=== PATIENT | female | born 1945 | race Caucasian/White ===

== ENCOUNTER 2018-01-07 15:24 | Emergency (ER) | payer MEDICARE, OTHER, SELFPAY ==
--- NOTE | 2018-01-07 14:57 | PC.NURSE ---
Report from nurse practitioner Marquise pt seen one week ago when she had trigger point injections for groin pain, next day was feeling better, 3 days later back to clinic for inability to walk and increased pain. today pt reported with bilateral lower leg pitting edema, and severe pain. per provider marquise pt is c/o 10/10 pain to left leg, and is very unlike her. pt coming pov.
[2018-01-07 15:51] VITALS: BP 125/71; PULSE 85; RESP 13; TEMP 36.8; O2SAT 98
--- NOTE | 2018-01-07 16:07 | PC.NURSE ---
Assumed care. Calls made to consulting Quin VILLANUEVA to re eval after
--- NOTE | 2018-01-07 16:29 | DI.US.S_ITS ---
PROCEDURE: US PERIPH VENOUS LOW EXTREM BI INDICATIONS: bilateral lower edema and ongoing left hip pain. TECHNIQUE: Real-time imaging, as well as color and pulse Doppler interrogation, were performed of the deep veins of both legs from the inguinal ligament to the popliteal fossa. COMPARISON: None. FINDINGS: Right: The deep veins are normally compressible, and free of intraluminal thrombus. Color and pulse Doppler demonstrate normal phasic intravascular flow. There is normal augmentation response to distal compression maneuver. Left: The deep veins are normally compressible, and free of intraluminal thrombus. Color and pulse Doppler demonstrate normal phasic intravascular flow. There is normal augmentation response to distal compression maneuver. IMPRESSION: No DVT in lower extremities. Dictated by: Alyson Flores M.D. on 01/07/2018 at 17:38 Approved by: Alyson Flores M.D. on 01/07/2018 at 17:39
--- NOTE | 2018-01-07 16:30 | DI.RAD.S_ITS ---
PROCEDURE: XR CHEST 1V INDICATIONS: edema lower extremities TECHNIQUE: One view of the chest was acquired. COMPARISON: [facility], CHEST 2 VIEW, 10/22/2014, 11:43. FINDINGS: Surgical changes and devices: None. Lungs and pleura: No pleural effusions or pneumothorax. Lungs are clear. Mediastinum: Mediastinal contours appear normal. Heart size is normal. Moderate hiatal hernia. Aortic calcifications. Bones and chest wall: No suspicious bony lesions. Levoconvex curvature thoracic spine. Overlying soft tissues appear unremarkable. IMPRESSION: 1. No acute cardiopulmonary abnormality. 2. Moderate hiatal hernia. Dictated by: Cooper Arita M.D. on 01/07/2018 at 16:52 Approved by: Cooper Arita M.D. on 01/07/2018 at 16:53
--- NOTE | 2018-01-07 16:30 | DI.RAD.S_ITS ---
PROCEDURE: XR HIP W PEL IF DONE LT 2V INDICATIONS: pain to left hip TECHNIQUE: AP pelvis and lateral view of the left hip acquired. COMPARISON: None. FINDINGS: Bones: Patient is status post bilateral hip arthroplasty, with hardware components in expected positions. The hip joints appear congruent. The visualized bony structures appear intact. Soft tissues: Overlying postoperative changes are noted. No suspicious soft tissue densities. IMPRESSION: Status post bilateral total hip arthroplasties with no apparent loosening or malalignment. Dictated by: Cooper Arita M.D. on 01/07/2018 at 16:54 Approved by: Cooper Arita M.D. on 01/07/2018 at 16:55
[2018-01-07 18:06] LABS: Add Manual Diff / Slide Review NO; Basophils Percent Auto 1.7 % (0-2); Eosinophils Percent Auto 5.4 % (2-4); Hematocrit 32.2 % (36-46); Hemoglobin 10.4 g/dL (12.0-16.0); Mean Corpuscular HGB Conc 32.4 % (30-36); Mean Corpuscular Hemoglobin 24.6 PG (26-34); Monocytes Percent Auto 7.6 % (3-14); Neutrophils Absolute Auto 3400 /uL (3000-5900); Neutrophils Percent Auto 66.3 % (50-75); Platelet Count 385 X10^3/uL (150-400); Red Blood Cell Count 4.23 X10^6/uL (4.0-5.2); Red Cell Distribution Width 18.1 % (11.6-14.8); White Blood Cell Count 5.2 X10^3/uL (4.5-11.0)
[2018-01-07 18:22] LABS: B Type Natriuretic Peptide 40.9 (<100)
[2018-01-07 18:33] LABS: Troponin I < 0.012 ng/mL (0.01-0.034)
[2018-01-07 18:35] LABS: Alanine Aminotransferase 24 IU/L (9-52); Albumin 3.7 g/dL (3.5-5.0); Albumin Globulin Ratio 1.2 (1.0-2.8); Alkaline Phosphatase 135 U/L (38-126); Aspartate Aminotransferase 23 IU/L (14-36); BUN Creatinine Ratio 25.8 (6-22); Bilirubin Total 0.3 mg/dL (0.2-1.3); Calcium 9.5 mg/dL (8.4-10.2); Estimated Glomerular Filt Rate 44.2 mL/min (>60); Globulin 3.1 g/dL (1.7-4.1); Glucose 94 mg/dL (80-110); HEMOLYSIS < 15 (0-50); Potassium 4.2 mmol/L (3.4-5.1); Sodium 138 mmol/L (137-145); Total Protein 6.8 g/dL (6.3-8.2)
--- NOTE | 2018-01-07 19:08 | ED_ITS ---
HPI - Extremity Injury (Lower) <SASHA Phelps - Last Filed: 01/07/18 21:53> General Chief Complaint: Extremity Injury, Lower Stated Complaint: LEFT SIDE HIP AND LEG PAIN Time Seen by Provider: 01/07/18 15:36 History of Present Illness HPI Narrative: 72-year-old female here for complaint of pain into her left hip for the last year. She denies any trauma to the left hip. She does report that she has had left hip replacement approximately year and a half ago. She has been seen for this by her primary care provider a few times. She reports that she had lidocaine chest to that area last week she reports worsening pain this week. She denies any shortness of breath or chest pain. However she does report that she does have a bilateral lower extremity edema. She was ambulatory into the emergency room. She denies any other concerns or complaints at this time. Related Data Home Medications Medication Instructions Recorded Confirmed Fish Oil 1 cap PO DAILY 01/07/18 01/07/18 aspirin 81 mg PO DAILY 01/07/18 01/07/18 cholecalciferol (vitamin D3) 2,000 unit PO DAILY 01/07/18 01/07/18 citalopram 10 mg PO DAILY 01/07/18 01/07/18 coenzyme Q10 [Co Q-10] 100 mg PO DAILY 01/07/18 01/07/18 cyclobenzaprine 10 mg PO TID PRN 01/07/18 01/07/18 oxycodone-acetaminophen 1 - 2 tab PO Q6H 01/07/18 01/07/18 polyethylene glycol 3350 [Miralax] 17 g PO DAILY 01/07/18 01/07/18 Previous Rx's Medication Instructions Recorded amlodipine 10 mg PO QDAY #90 tab 04/19/17 losartan 100 mg PO QDAY #90 tab 04/19/17 Allergies Allergy/AdvReac Type Severity Reaction Status Date / Time latex Allergy Mild RASH Unverified 11/27/17 12:03 Penicillins Allergy Unknown CHILDHOOD Unverified 11/27/17 12:03 morphine AdvReac Intermediate SEVERE Unverified 11/27/17 12:03 VOMITING pravastatin AdvReac Intermediate DEPRESSION Unverified 11/27/17 12:03 simvastatin AdvReac Intermediate MYALGIAS Unverified 11/27/17 12:03 Review of Systems <SASHA Phelps - Last Filed: 01/07/18 21:53> Constitutional Denies chills, Denies fever(s), Denies lethargy and Denies weakness Eyes Denies change in vision, Denies eye discharge, Denies irritation and Denies loss of vision Cardiovascular Denies chest pain, Denies irregular heart rhythm, Denies lightheadedness, Denies palpitations and Denies orthopnea Musculoskeletal Comments: Ongoing left hip pain and bilateral lower extremity edema Neurologic Denies confusion, Denies loss of vision and Denies weakness Psychiatric Denies anxiety, Denies confusion, Denies depression, Denies homicidal ideation and Denies suicidal ideation Endocrine Denies palpitations Exam <ASSHA Phelps - Last Filed: 01/07/18 21:53> Initial Vital Signs Initial Vital Signs: Vital Signs Temperature 98.3 F 01/07/18 15:51 Pulse Rate 85 01/07/18 15:51 Respiratory Rate 13 01/07/18 15:51 Blood Pressure 125/71 H 01/07/18 15:51 Pulse Oximetry 98 01/07/18 15:51 Const General: cooperative and well developed Nutritional Appearance: well nourished Orientation: alert, awake, oriented x3 and not confused [facility] Mouth: oral mucosae normal, oropharynx normal and moist mucous membranes Eyes Conjunctivae: conjunctivae normal Sclera: sclerae normal Pupils: PERRL EOM: EOM intact bilaterally Resp Effort & Inspection: normal respiratory effort, able to speak in complete sentences, no respiratory distress and no use of accessory muscles Auscultation: clear to auscultation bilaterally, no rales, no rhonchi and no wheezes Cardio Rate: regular rate Rhythm: regular rhythm Heart Sounds: no click, no gallops, no murmurs and no rubs Pulses: normal peripheral pulses Skin General: no rashes or lesions noted, No jaundice and No petechiae Extrem Other: Left hip with no deformities. No swelling and no ecchymosis. No hernias. Distal sensation is intact. Distal pulses are intact. Distal range of motion is intact. Plus one edema to bilateral lower extremities. <Nilay Salomon DO - Last Filed: 01/14/18 18:11> Initial Vital Signs Initial Vital Signs: Vital Signs Temperature 98.3 F 01/07/18 15:51 Pulse Rate 85 01/07/18 15:51 Respiratory Rate 13 01/07/18 15:51 Blood Pressure 125/71 H 01/07/18 15:51 Pulse Oximetry 98 01/07/18 15:51 Course <SASHA Phelps - Last Filed: 01/07/18 21:53> Orders Ordered: ED Orders 01/07/18 16:29 US periph venous low extrem bi Stat 01/07/18 16:30 XR chest 1V Stat XR hip w pel if done LT 2V Stat EKG-12 Lead Stat 01/07/18 17:45 B Type Natriuretic Peptide Stat Complete Blood Count AUTO DIFF Stat Comprehensive Metabolic Panel Stat Troponin I Stat Vital Signs - 8 hr 01/07/18 15:51 Temperature 98.3 F Pulse Rate 85 Respiratory Rate 13 Blood Pressure 125/71 H Pulse Oximetry 98 <Nilay Salomon DO - Last Filed: 01/14/18 18:11> Orders Ordered: ED Orders 01/07/18 16:29 US periph venous low extrem bi Stat 01/07/18 16:30 XR chest 1V Stat XR hip w pel if done LT 2V Stat EKG-12 Lead Stat 01/07/18 17:45 B Type Natriuretic Peptide Stat Complete Blood Count AUTO DIFF Stat Comprehensive Metabolic Panel Stat Troponin I Stat Vital Signs - 8 hr 01/07/18 15:51 Temperature 98.3 F Pulse Rate 85 Respiratory Rate 13 Blood Pressure 125/71 H Pulse Oximetry 98 MDM - Extremity Injury (Lower) <SASHA Phelps - Last Filed: 01/07/18 21:53> Lab Data Result diagrams: 01/07/18 17:45 01/07/18 17:45 Lab Results 01/07/18 01/07/18 01/07/18 Range/Units 17:45 17:45 17:45 WBC 5.2 (4.5-11.0) X10^3/uL RBC 4.23 (4.0-5.2) X10^6/uL Hgb 10.4 L (12.0-16.0) g/dL Hct 32.2 L (36-46) % MCV 76.0 L (80-100) fL MCH 24.6 L (26-34) PG MCHC 32.4 (30-36) % RDW 18.1 H (11.6-14.8) % Plt Count 385 (150-400) X10^3/uL Neut % (Auto) 66.3 (50-75) % Lymph % (Auto) 19.0 L (25-40) % Hyde % (Auto) 7.6 (3-14) % Eos % (Auto) 5.4 H (2-4) % Baso % (Auto) 1.7 (0-2) % Neut # (Auto) 3400 (0755-6958) /uL Sodium 138 (137-145) mmol/L Potassium 4.2 (3.4-5.1) mmol/L Chloride 100.0 (98-107) mmol/L Carbon Dioxide 27.0 (22-32) mmol/L BUN 31.0 H (7-17) mg/dL Creatinine 1.20 H (0.52-1.04) mg/dL Estimated GFR 44.2 L (>60) mL/min BUN/Creatinine Ratio 25.8 H (6-22) Glucose 94 (80-110) mg/dL Calcium 9.5 (8.4-10.2) mg/dL Total Bilirubin 0.3 (0.2-1.3) mg/dL AST 23 (14-36) IU/L ALT 24 (9-52) IU/L Alkaline Phosphatase 135 H (38-126) U/L Troponin I < 0.012 (0.01-0.034) ng/mL B-Natriuretic Peptide 40.9 (<100) Total Protein 6.8 (6.3-8.2) g/dL Albumin 3.7 (3.5-5.0) g/dL Globulin 3.1 (1.7-4.1) g/dL Albumin/Globulin Ratio 1.2 (1.0-2.8) Imaging Data Chest x-ray: Radiologist's impression: PROCEDURE: XR CHEST 1V INDICATIONS: edema lower extremities TECHNIQUE: One view of the chest was acquired. COMPARISON: [facility], CHEST 2 VIEW, 10/22/2014, 11:43. FINDINGS: Surgical changes and devices: None. Lungs and pleura: No pleural effusions or pneumothorax. Lungs are clear. Mediastinum: Mediastinal contours appear normal. Heart size is normal. Moderate hiatal hernia. Aortic calcifications. Bones and chest wall: No suspicious bony lesions. Levoconvex curvature thoracic spine. Overlying soft tissues appear unremarkable. IMPRESSION: 1. No acute cardiopulmonary abnormality. 2. Moderate hiatal hernia. Dictated by: Cooper Arita M.D. on 01/07/2018 at 16:52 Approved by: Cooper Arita M.D. on 01/07/2018 at 16:53 left hip: Radiologist's impression: PROCEDURE: XR HIP W PEL IF DONE LT 2V INDICATIONS: pain to left hip TECHNIQUE: AP pelvis and lateral view of the left hip acquired. COMPARISON: None. FINDINGS: Bones: Patient is status post bilateral hip arthroplasty, with hardware components in expected positions. The hip joints appear congruent. The visualized bony structures appear intact. Soft tissues: Overlying postoperative changes are noted. No suspicious soft tissue densities. IMPRESSION: Status post bilateral total hip arthroplasties with no apparent loosening or malalignment. Bilateral lower extremity ultrasound: Radiologist's impression: PROCEDURE: US PERIPH VENOUS LOW EXTREM BI INDICATIONS: bilateral lower edema and ongoing left hip pain. TECHNIQUE: Real-time imaging, as well as color and pulse Doppler interrogation, were performed of the deep veins of both legs from the inguinal ligament to the popliteal fossa. COMPARISON: None. FINDINGS: Right: The deep veins are normally compressible, and free of intraluminal thrombus. Color and pulse Doppler demonstrate normal phasic intravascular flow. There is normal augmentation response to distal compression maneuver. Left: The deep veins are normally compressible, and free of intraluminal thrombus. Color and pulse Doppler demonstrate normal phasic intravascular flow. There is normal augmentation response to distal compression maneuver. IMPRESSION: No DVT in lower extremities. Dictated by: Alyson Flores M.D. on 01/07/2018 at 17:38 Approved by: Alyson Flores M.D. on 01/07/2018 at 17:39 ECG Data Interpretation: EKG shows sinus rhythm with no ST elevation or depression. No ectopy. Ventricular rate of 80. Pr interval 200. QRS duration of 100. QTC of 414. MDM Narrative Medical decision making narrative: Chest x-ray was obtained was negative for any acute findings. EKG was negative for any acute findings. CBC and Chem panel and cardiac enzymes were obtained and were unremarkable. BNP was negative. X-ray of the left hip was negative for any acute findings. Bilateral lower extremity ultrasound Doppler was negative for DVT. Chronic pain into left hip presents as muscle pain however due to chronic pain recommend following up with Orthopedics obtain an MRI for further evaluation. Use currently prescribed pain management regimen as needed for any discomfort. Follow up with primary care provider. Return emergency room for any worsening symptoms. <Nilay SalomonDO - Last Filed: 01/14/18 18:11> Lab Data Lab Results 01/07/18 01/07/18 01/07/18 Range/Units 17:45 17:45 17:45 WBC 5.2 (4.5-11.0) X10^3/uL RBC 4.23 (4.0-5.2) X10^6/uL Hgb 10.4 L (12.0-16.0) g/dL Hct 32.2 L (36-46) % MCV 76.0 L (80-100) fL MCH 24.6 L (26-34) PG MCHC 32.4 (30-36) % RDW 18.1 H (11.6-14.8) % Plt Count 385 (150-400) X10^3/uL Neut % (Auto) 66.3 (50-75) % Lymph % (Auto) 19.0 L (25-40) % Hyde % (Auto) 7.6 (3-14) % Eos % (Auto) 5.4 H (2-4) % Baso % (Auto) 1.7 (0-2) % Neut # (Auto) 3400 (3115-5577) /uL Sodium 138 (137-145) mmol/L Potassium 4.2 (3.4-5.1) mmol/L Chloride 100.0 (98-107) mmol/L Carbon Dioxide 27.0 (22-32) mmol/L BUN 31.0 H (7-17) mg/dL Creatinine 1.20 H (0.52-1.04) mg/dL Estimated GFR 44.2 L (>60) mL/min BUN/Creatinine Ratio 25.8 H (6-22) Glucose 94 (80-110) mg/dL Calcium 9.5 (8.4-10.2) mg/dL Total Bilirubin 0.3 (0.2-1.3) mg/dL AST 23 (14-36) IU/L ALT 24 (9-52) IU/L Alkaline Phosphatase 135 H (38-126) U/L Troponin I < 0.012 (0.01-0.034) ng/mL B-Natriuretic Peptide 40.9 (<100) Total Protein 6.8 (6.3-8.2) g/dL Albumin 3.7 (3.5-5.0) g/dL Globulin 3.1 (1.7-4.1) g/dL Albumin/Globulin Ratio 1.2 (1.0-2.8) Discharge Plan Departure Patient Disposition: Home, Self-Care Clinical Impression: Hip pain, left Discharge Date/Time: 01/07/18 19:17 Interventions: ED Discharge Assessment Last Done: 01/07/18 19:15 Instructions: DI for Hip Pain Activity Restrictions/Additional Instructions: Imaging and laboratory results today were unremarkable. Signs and symptoms presents as hip sprain/strain. Although since pain has been going on for a year recommend following up with Orthopedics in discussion of MRI for further evaluation. He is currently prescribed pain management regimen as needed for any discomfort. Follow up with primary care provider. Return emergency room for any worsening symptoms. Prescriptions: No Action amlodipine 10 MG tablet 10 mg PO QDAY Qty: 90 RF: 1 losartan 100 MG tablet 100 mg PO QDAY Qty: 90 RF: 1 cyclobenzaprine 10 mg tablet 10 mg PO TID PRN (Reason: Muscle Spasm) RF: 0 polyethylene glycol 3350 [Miralax] 17 gram Powder In Packet 17 g PO DAILY RF: 0 aspirin 81 mg Tablet,Delayed Release (Dr/Ec) 81 mg PO DAILY RF: 0 oxycodone-acetaminophen 5-325 mg tablet 1 - 2 tab PO Q6H RF: 0 coenzyme Q10 [Co Q-10] 100 mg Capsule 100 mg PO DAILY RF: 0 cholecalciferol (vitamin D3) 2,000 unit Capsule 2,000 unit PO DAILY RF: 0 Fish Oil 1 cap PO DAILY RF: 0 citalopram 10 MG tablet 10 mg PO DAILY RF: 0 Referrals: [facility] [Provider Group] Rishabh Fitzgerald MD [Primary Care Provider] - <Nilay Salomon DO - Last Filed: 01/14/18 18:11> Cosign ED Attending Cadence Attestation: I was available for consultation during this patient's emergency department encounter
== END 2018-01-07 19:17 | disposition home or self-care (01) ==
PROVIDERS: Emergency Provider Nurse Practitioner Family; Family Provider Family Medicine; PCP Family Medicine
DX: M25.552 Pain in left hip (principal); R60.0 Localized edema
CPT/HCPCS: 36415; 71045; 73502; 80053; 81003; 83880; 84484; 85025; 93005; 93970; 99281; 99283; 99285

== ENCOUNTER → 2018-07-07 08:51 | Outpatient (CLI) | payer MEDICARE, OTHER, SELFPAY ==
--- NOTE | 2018-07-07 | DI.NM.S_ITS ---
PROCEDURE: NM BONE 3 PHASE RADIOPHARMACEUTICAL: 19.5 mCi Tc-99m MDP IV. INDICATIONS: 73 year-old female with history of left hip prosthesis with increasing pain presenting for evaluation of possible loosening. TECHNIQUE: Multiple bone scintigrams were obtained after intravenous injection of Tc-99m MDP, including flow, blood pool, and delayed images centered to the region of interest. COMPARISON: [facility], MR, HIP WITHOUT CONTRAST, 07/09/2016, 9:01. [facility], CR, XR HIP W PEL IF DONE LT 2V, 01/07/2018, 16:12. FINDINGS: There is mild indistinct increased activity lateral to the proximal left femur on blood flow and blood pool images. Delayed images demonstrate no increased periarticular bony uptake. There are bilateral photopenic regions in the hips consistent with bilateral prostheses. IMPRESSION: 1. No abnormal periprosthetic bony uptake to suggest loosening. 2. Increased activity demonstrated in the soft tissues lateral to the proximal femur on blood flow and blood pool images. Findings are nonspecific but may reflect an inflammatory process. Further evaluation may be obtained with MRI if clinically indicated. Dictated by: Nathen Segundo M.D. on 07/07/2018 at 17:04 Approved by: Nathen Segundo M.D. on 07/07/2018 at 17:10
== END ==
PROVIDERS: Family Provider Family Medicine; PCP Family Medicine; Visit Provider Orthopaedic Surgery
DX: T84.84XA Pain due to internal orthopedic prosthetic devices, implants and grafts, initial encounter (principal); Z96.642 Presence of left artificial hip joint
CPT/HCPCS: 78315; A9503

== ENCOUNTER → 2022-07-09 15:35 | Outpatient (CLI) | payer MEDICARE, OTHER, SELFPAY ==
--- NOTE | 2022-07-09 15:38 | DI.CT.S_ITS ---
PROCEDURE: CT LE LT W CON INDICATIONS: LEFT KNEE PAIN TECHNIQUE: Noncontrast 1-1.5 mm axial sections acquired from the mid-patella to the proximal tibia, with coronal and sagittal reformats. COMPARISON: None. FINDINGS: Image quality: Excellent. Bones: Avulsion fracture of the tibial tuberosity with moderate displacement. There is also a suspected more chronic bone fragment at the patellar tendon origin. The quadriceps insertion is maintained. Scattered enthesopathic changes. Mild knee arthrosis overall. Soft tissues: Soft tissue edema adjacent to the fracture. Small amount of joint fluid. There are atherosclerotic calcifications. IMPRESSION: Tibial tuberosity avulsion fracture with surrounding soft tissue edema. Bone fragment adjacent to the patella at the patellar tendon origin might be more chronic. Dictated by: Andreas Donohue M.D. on 07/09/2022 at 16:49 Approved by: Andreas Donohue M.D. on 07/09/2022 at 16:52
== END ==
PROVIDERS: Family Provider Family Medicine; PCP Family Medicine; Referring Provider Orthopaedic Surgery; Visit Provider Orthopaedic Surgery
DX: S82.152A Displaced fracture of left tibial tuberosity, initial encounter for closed fracture (principal); M25.562 Pain in left knee; M79.89 Other specified soft tissue disorders; X58.XXXA Exposure to other specified factors, initial encounter
CPT/HCPCS: 73700

== ENCOUNTER 2022-07-11 21:32 | Inpatient (IN) | payer MEDICARE, OTHER, SELFPAY ==
[2022-07-11] VITALS (12 sets, daily range): BP systolic 114–171; BP diastolic 68–95; PULSE 59–93; RESP 12–23; TEMP 35.7–36.5; O2SAT 91–100; BMI 29.2
--- NOTE | 2022-07-11 | DI.RAD.S_ITS ---
PROCEDURE: XR KNEE LT 1TO2V INDICATIONS: left ORIF fracture TECHNIQUE: 7 views of the knee were acquired. COMPARISON: [facility]n, XR KNEE 4+ VIEWS LEFT, 07/09/2022, 11:05. FINDINGS: Multiple intraoperative fluoroscopic views of the knee demonstrate open reduction and internal fixation of the previously visualized left tibial tubercle fracture. There is placement of a fixation screw with improved alignment. IMPRESSION: 1. Intraoperative fluoroscopic views demonstrate ORIF of left tibial tubercle fracture. Dictated by: Nathen Segundo M.D. on 07/12/2022 at 3:22 Approved by: Nathen Segundo M.D. on 07/12/2022 at 3:23
[2022-07-11 16:02] LABS: COVID19 -Nasal RAPID Negative (Negative)
[2022-07-11] MEDS: LACTATED RINGERS 1,000 ML 42 ML IV (16:20)
[2022-07-11] MEDS: CEFAZOLIN 2 GM/100 ML PREMIX 100 ML IV (17:10)
[2022-07-11] MEDS: BUPIVACAINE 0.25% (PF) 30 ML, EPINEPHrine 0.15 MG INJ (17:41)
[2022-07-11] MEDS: fentaNYL 100 MCG/2 ML INJ IV ×2 (17:56→18:02)
[2022-07-11] MEDS: OXYCODONE IR 5 MG TABLET PO ×2 (18:10→18:54)
[2022-07-11] MEDS: HYDROMORPHONE 2 MG INJ IV ×4 (18:13→18:33)
--- NOTE | 2022-07-11 18:40 | PM.OP.1 ---
Operative Date/Time/Diagnoses Date of procedure: 07/11/22 Time of procedure: 18:40 Pre-op diagnosis: Left tibial tubercle fracture Post-op diagnosis: same Procedure & Clinicians Procedure: Open reduction internal fixation left tibial tubercle fracture Same procedure as scheduled: Yes Indications: This is a 77-year-old female who had a ground level fall sustaining a left tibial tubercle avulsion fracture. Due to the disruption to her extensor mechanism we discussed operative fixation in order to facilitate healing and allow her to extend her leg. Risks and benefits of the procedure were described and she wished to go forth. Surgeon: Milton Man Click Yes if Unassisted: Yes Anesthesia Type: General Operative Notes Findings: See operative note Closure Type: primary Estimated Blood Loss (mL): 10 Blood products transfused: none Tourniquet time (min): 32 Procedure in detail: Preoperative diagnosis: Left tibial tubercle fracture Postoperative diagnosis: Same The patient was seen in the preoperative holding area. Her left lower extremity was confirmed and marked with my initials. We again went over the risks and benefits of surgery including the risk of infection, damage to internal structures, bleeding, hardware failure, risk for future surgery and risk of anesthesia. She expressed understanding with these risks and wished to go forward with surgery. She was brought back to the operating room and transferred to the operating table supine. She underwent smooth induction of anesthesia and 2 g of Ancef were given. Her left lower extremity was prepped and draped in the standard sterile fashion. A bump was placed under the left hip. The staff talus was placed under the left knee. A final time-out was performed again my initials were confirmed on the left lower extremity. A 3 cm incision was made over the tibial tubercle and incision was brought down to the side of the fracture. Fracture edges were cleaned off and intervening periosteum was removed from the fracture site. This was irrigated with saline. Reduction was performed by extending the leg and manual manipulation. Reduction was held with 2 crossing K-wires. Reduction was confirmed on lateral x-ray. A single 3.5 mm screw was placed through the center of the tubercle with a figure of 8 washer laid across the fracture site. Before this was completely tightened down, a #2 FiberWire was sewn through the patellar tendon in a Krackow fashion and then linked through the distal end of the figure of 8 washer. The screw was then tightened all the way down and the FiberWire was then tied down. The wounds were then closed with 3-0 Vicryl and anabella. She was brought back to the postoperative care unit without any incident. Complications: none Post-operative Condition: stable Disposition: PACU Plan for aftercare: Postoperatively she will be nonweightbearing for 2 weeks and she will be in a knee immobilizer for 4 weeks. She may begin weight-bearing as long as her knee is extended after 2 weeks. Dressings may come off after 3 days and she can shower let warm soap and water run over the incisions. She is to pat the incisions completely dry and replace with clean dry dressings for 2 more days after which the dressings may come completely off. I will see her back in clinic in 2 weeks for wound check and removal of anabella.
[2022-07-11] MEDS: KETOROLAC 30 MG/ML VIAL 15 MG IV (18:43)
[2022-07-11] MEDS: ONDANSETRON 4 MG/2 ML INJ IV (19:04)
--- NOTE | 2022-07-11 19:31 | SUR.PHASEI ---
19[birth year] Report given to SOLITARIO Girard
--- NOTE | 2022-07-11 19:39 | SUR.PHASEI ---
Patient unable to keep her oxygen saturation above 95% on a consistent basis; patient denies SOB but has sleep apnea and uses a CPAP, which she has with her. Patient also c/o dizziness, but VSS. Denies any CP or nausea; pain is 3/10 for operative site. Asked patient is she felt that she could make it home on the [facility] with her and she states, no. Asked patient if she felt comfortable going to a hotel in [facility], and again, patient states, no. Advised Dr Man that patient would need to be admitted for observation due to inability to keep oxygen saturations at an acceptable level and inability to be discharged. Orders received for transfer to inpatient unit and notified home restoration service supervisor.
[2022-07-11] MEDS: DOCUSATE 100 MG CAPSULE PO (22:19)
[2022-07-11] MEDS: PROPRANOLOL 10 MG TABLET PO (22:19)
[2022-07-11] MEDS: FAMOTIDINE 20 MG TABLET PO (22:19)
[2022-07-11] MEDS: ASPIRIN EC 81 MG TABLET PO (22:19)
[2022-07-11] MEDS: GABAPENTIN 600 MG TABLET 300 MG PO (22:31)
[2022-07-12 06:35] VITALS: BP 149/79; PULSE 57; RESP 18; TEMP 36.1; O2SAT 96
[2022-07-12 07:56] VITALS: BP 159/80; PULSE 60; RESP 16; TEMP 36.4; O2SAT 96
[2022-07-12] MEDS: HYDROCODONE/ACET 5/325 TABLET 1 TAB PO (08:02)
[2022-07-12] MEDS: ASPIRIN EC 81 MG TABLET PO (08:03)
[2022-07-12] MEDS: NIFEdipine 30 MG TAB ER 60 MG PO (08:03)
[2022-07-12 08:04] VITALS: BP 159/80; PULSE 60
[2022-07-12] MEDS: FAMOTIDINE 20 MG TABLET PO (08:04)
[2022-07-12] MEDS: hydroCHLOROthiazide 25 MG TABLET 12.5 MG PO (08:04)
[2022-07-12] MEDS: DOCUSATE 100 MG CAPSULE PO (08:04)
[2022-07-12] MEDS: LOSARTAN 50 MG TABLET PO (08:04)
--- NOTE | 2022-07-12 08:06 | P.DS_ITS ---
History of Present Illness History of Present Illness Date Patient Seen: 07/12/22 Time Patient Seen: 08:06 Chief complaint: Left ORIF Ankle Fracture Narrative: Patient is a 77-year-old female that had a left tibial tubercle fracture and disruption of her extensor mechanism. She underwent ORIF of tibial tubercle by Dr. Milton Man on 07/11/2022. In the postoperative unit she had uncontrolled pain and sedation requiring inpatient admission to observation. As she was unable to be discharged in time to make her ferry back home and pain was not controlled enough to be discharged to local temporary hotel accommodations. Discharge Providers Provider Date of admission: 07/11/22 21:32 Discharge Date: 07/12/22 Primary care physician: Rishabh Fitzgerald MD Consults: 07/11/22 19:31 Consult to Discharge Planning Routine Comment: Consult to Physical Therapy Evaluate & Treat Comment: Physician Instructions: Evaluate and Treat Discharge provider: Vandana Brown MD Summary Hospital Course Discharge Diagnosis: Left tibial tubercle avulsion fracture Hospital Course: Patient was admitted to the inpatient observation unit postoperatively for uncontrolled pain and sedation in the postoperative area. She was not able to be timely discharge to make her very back home and was unsafe for local tell discharge. Therefore she was indicated admission for observation for pain control and nurse monitoring. Overnight she had pain control with oral and IV medications. She was controlled on oral medications and alert and oriented on the morning of discharge. She worked with Physical therapy and was demonstrated safe for discharge home on postoperative day 1 with pain controlled and stable vital signs. Status at Discharge Cognitive/behavioral status at discharge: oriented Functional status at discharge: wheelchair bound (Walker and wheelchair) Overall status at discharge: patient is not back to baseline Time Spent with Patient Time spent: Less than 30 minutes Exam Vital Signs (past 8 hours): - 07/12/22 06:35 07/12/22 07:56 07/12/22 08:04 Temperature 96.9 F L 97.5 F L Pulse Rate 57 L 60 60 Respiratory Rate 18 16 Blood Pressure 149/79 H 159/80 H 159/80 H Pulse Oximetry 96 96 Oxygen Delivery Method Room Air,CPAP Narrative Exam Narrative: Alert oriented female in no acute distress HEENT normocephalic atraumatic Respirations unlabored on room air Heart regular rate and rhythm Left lower extremity with dressing in place knee immobilizer in place. Wiggles toes. Demonstrates flexion and extension of the ankle. Calf and thigh are soft. Palpable pulses Objective Labs Labs: Laboratory Results - last 24 hr 07/11/22 15:40 SARS-CoV-2 (PCR) Negative PFSH Medical History Allergic rhinitis (~2010) Aortic heart murmur on examination (01/02/16) Chronic renal insufficiency, stage III (moderate) (01/02/16) Depressive disorder (~2010) Essential hypertension (~2010) Metatarsalgia (04/05/15) Mixed hyperlipidemia (~2010) Obstructive sleep apnea treated with continuous positive airway pressure (CPAP) (01/02/16) Postmenopausal estrogen deficiency (08/29/16) Sciatica (01/08/11) Surgical History History of hip replacement, total Social History household members: spouse Smoking Status: Never smoker alcohol intake: current Discharge Assessment & Plan Assessment and Plan Assessment: Postop day 1 left tibial tubercle ORIF 07/11/2022 Doing well. Pain better controlled and sedation mentation improved Vital signs stable. Appropriate for discharge home today after physical therapy. Plan of Treatment: 1. Nonweightbearing left lower extremity will use knee immobilizer at all times until follow-up. Use walker or wheelchair for mobilization 2. Follow-up in 2 weeks with orthopedic surgeon for staple removal. This will be Swapnil Sotelo [facility] -, Milton Man, clinic phone number [phone] 3. Aspirin 81 mg b.i.d. for DVT prophylaxis 4. Has pain medication prescriptions for ibuprofen and Roscoe that had already been sent to the pharmacy 5. Resume home medications Discharge Plan Discharge Plan Patient Disposition: Home Discharge orders & Medications Prescriptions: New hydrocodone-acetaminophen 5-325 mg tablet 1 tab PO Q6H PRN (Reason: pain) Qty: 20 0RF ibuprofen 600 mg tablet 600 mg PO Q6H PRN (Reason: pain) Qty: 60 0RF Continued irbesartan-hydrochlorothiazide 150-12.5 mg Tablet 1 tab PO DAILY nifedipine 30 mg tablet extended release 24hr 60 mg PO DAILY Label Comments: TAKE TWO(2) TABLETS BY MOUTH ONCE DAILY NOTE THESE ARE 30MG TABLETS cyclobenzaprine 10 mg tablet 10 mg PO DAILY PRN (Reason: Muscle Spasm) Label Comments: TAKE ONE(1) TABLET BY MOUTH ONCE DAILY NEEDED FOR MUSCLE SPASMS gabapentin 600 mg tablet 300 mg PO DAILY Label Comments: TAKE ONE(1) TABLET BY MOUTH ONCE DAILY AT BEDTIME propranolol 10 mg Tablet 10 mg PO BID famotidine 20 mg Tablet 20 mg PO BID citalopram 10 MG tablet 10 mg PO DAILY Follow up/Referrals: Rishabh Fitzgerald MD [Primary Care Provider] - Diet/Activity/Treatments Diet: Diet as Tolerated Activity: Remain in knee immobilizer for 4 weeks minimum. Okay to mobilize after 2 weeks as long as knee is completely extended and knee immobilizer is in place. use wheel chair or walker for mobilization, Postoperatively she will be nonweightbearing for 2 weeks and she will be in a knee immobilizer for 4 weeks. She may begin weight-bearing as long as her knee is extended after 2 weeks. Dressings may come off after 3 days and she can shower let warm soap and water run over the incisions. She is to pat the incisions completely dry and replace with clean dry dressings for 2 more days after which the dressings may come completely off. I will see her back in clinic in 2 weeks for wound check and removal of anabella. Other treatments: You must remain non-weight bearing on your operative ex tremity. Use crutches or a walker for ambulation. No driving until you are otherwise instructed by your physician. This will be addressed at your first follow-up appointment. Discharge Pain Medications You will be given a prescription for pain medication. You should start taking this the same day after your surgery. Wean off as tolerated. Do not wait to take the pain medication until the pain is severe, as it will be difficult to catch up once this occurs. The pain medication usually reaches its full effect ~1 hour after ingesting. If you have been sent home on Colace, this medication should be taken until you are off all narcotic (i.e. Vicodin, Percocet, Oxycodone, etc) pain medications, to prevent constipation. You may also obtain this or another stool softener over the counter to prevent or alleviate constipation. Percocet or Vicodin have Tylenol in their ingredient lists. You must be careful not to exceed 3,000mg (3 grams) of Tylenol, from all sources, within a single 24-hr period. This means that you may not take more than 10 pills within a 24- hr period. Do NOT take Regular or Extra Strength Tylenol when taking your Percocet or Vicodin medications. -IF you have been given a Toradol/ketorolac prescription, this is a very strong anti-inflammatory. Do not take lzeo-qsu-fnorytk anti-inflammatories (ibuprofen, Aleve, Advil, Motrin) while taking the Toradol/ketorolac. Once you are finished with this prescription, then you can resume wpse-gmk-qetkatp anti- inflammatories. You can still take your narcotic pain medication and Tylenol while taking the Toradol/ketorolac. -Some common side effects of the narcotic pain medications (Percocet, Oxycodone, Vicodin, etc.) include nausea and itching. Benadryl is a great over the counter medication that helps calm your stomach, decreases your anxiety levels, and minimizes the itching. You can easily purchase this at your local pharmacy as an bhqu-xfd-wtlbeiw medication. Please abide by the instructions as printed on the bottle. If your nausea persists, make sure to take small amounts of crackers or other aerobics teacher foods. -If have been given oxycodone 5 mg tablets, try to take the smallest dose needed to control your pain. Generally start with 5 mg every 4 hours as needed for pain. However you can increase this if you are having significant pain. The maximum dosage for oxycodone would be 15 mg or three (5 mg) tablets p.o. every 3 hours as needed for pain. As soon as pain is better controlled you should decrease the amount of medication your taking and increase the interval between doses. If you are given Percocet or Vicodin or Roscoe these are medications with the narcotic and Tylenol in them and they were dosing will need to keep in mind the maximum daily dosages for Tylenol/acetaminophen. Follow-Up/Emergency Contacts Please call for an appointment in either [place] or [place], if one has not been scheduled. Follow up 2 weeks after surgery. [phone] Contact the office if you have any of the following: ? Painful swelling or numbness ? Unrelenting pain ? Fever (over 101?- it is normal to have a low grade fever for the first day or two following surgery) or chills ? Redness around the incisions ? Color changes ? Continuous bleeding or drainage from the incision (a small amount is expected) ? Excessive nausea or vomiting ? Difficulty breathing If you have an emergency that requires immediate attention such as shortness of breath or chest pain, call 911 or proceed to the nearest emergency room. Blood Clot Prophylaxis You will need to complete a total 6-week (42 days) course of Aspirin enteric coated (81 mg twice daily) after surgery, to minimize the risk of blood clots following surgery. You may alternatively purchase or use fcxt-fxp-yphvfyt generic equivalent Aspirin. If you already have ?baby? Aspirin (81mg) at home, you can take 1 ?baby? Aspirin (twice daily) the dose. If you have gastric upset with this or a history of gastric bleeding or ulcers, do not take aspirin, please call the office for alternatives. Commence foot and ankle. knee pumps and movement with the nonoperative leg to keep your blood moving and help prevent clots. You can also obtain compression socks of antiembolism hose (PARISH) hose from the drug store to wear on the nonoperative leg and also on the operative leg once the splint or cast is removed. Adjust your position or get up onto your crutches every hour or so just to move around. Pain Medications: It is the policy of [facility] that narcotic medications will only be refilled during office hours. Additionally, due to the alarming rate of narcotic pain medication abuse/dependence, it has become necessary for physician practices to closely manage patient use of prescription narcotic pain relievers, such as Vicodin (Roscoe), Percocet, and Oxycodone products. Narcotic pain management in the postoperative period may not exceed 6 weeks. If narcotic pain management is required beyond 90 days, then a referral to a Chronic Pain Specialist will be made. If a request for a medication prescription has been made, the physician must review your chart prior to authorizing the request. Please be patient with office staff. If you call during patient hours, your call may not be returned until the end of the day. Dr. Milton Cho [place] [address] [place] [address] [email or web address] Skin/Wound/Dressing Care Report to your healthcare provider any signs of infection, such as:: chills, fever, night sweats, increased pain, unusual drainage and unusual redness Dressing: Dressings may come off after 3 days, okay to shower with warm soap and water. Completely dry the wound and then replace the dressings for 2 more days. Five days postoperatively take dressings completely off in remain dry to air. Visit Report/Discharge Packet Instructions: DI for Open Reduction Internal Fixation Surgery, DI for Prescription Opioid Use Discharge Data Primary Care Provider: Rishabh Fitzgerald VTE Deep Vein Thrombosis/Pulmonary Embolism Present on Admission: No
[2022-07-12] MEDS: INFLUENZA HD VACCINE 0.7 ML SYRINGE IM (08:22)
[2022-07-12] MEDS: PROPRANOLOL 10 MG TABLET PO (08:58)
--- NOTE | 2022-07-12 09:20 | CM.DANOTE ---
Initial DCP Assessment Note Pt is a 77 yo female, resident of [place], arrives after a GLF and subsequent Left tibial tubercle fracture, POD#1 from repair, surgery done by Dr Man. PCP: Clinic, [place] (Former PCP: Dr Medardo Fitzgerald) Payer: [facility]/Lizy grider Belkofski Reviewed chart, pt had been expected to discharge from the OR yesterday; was transferred to the acute care floor for monitoring d/t uncontrolled pain and sedation in recovery. Patient now cleared by therapy for discharge home w/spouse, PT recommends HH and patient/spouse agreeable Placed call to [facility] and discussed referral. Will plan to fax referral now Plan: Discharge home w/spouse to assist, via private auto and Marquise cedillo RN/PT/OT JOSH Merino Discharge Planning/Care Management CM Discharge Assessment Start: 07/12/22 09:18 Freq: Status: Active Protocol: Document 07/12/22 09:18 LAQUITA (Rec: 07/12/22 09:19 LAQUITA [id number]) Discharge Planning Assessment Assigned Bradder JOSH Wadsworth DPOA/Assigned Designee Name Wes Pulliam spouse Contact Information [phone] Advance Directives? No History Provided By Patient,Significant Other, Medical Record Prior Living Arrangements House Household Members spouse Type of transporation used prior to Drives own vehicle admit Independent with ADL's Yes Is patient alert and oriented? Yes Barriers to Discharge No Comment Return home to the care of spouse, close outpatient f/u Discharge Plan Home Transportation Arrangement Family
--- NOTE | 2022-07-12 09:30 | PT.IIE ---
Current Diagnoses Unspecified fracture of upper end of left tibia, initial encounter for closed fracture (07/11/22) Displaced fracture of unspecified tibial tuberosity, initial encounter for closed fracture (07/11/22) Surgery Performed Operation Date: 07/11/22 16:45 Actual Procedures p ORIF tibial tuberosity(Left) - Milton Man MD Surgical History (Last Reviewed 07/12/22 @ 08:10 by Vandana Brown MD) History of hip replacement, total Medical History (Last Reviewed 07/12/22 @ 08:10 by Vandana Brown MD) Allergic rhinitis (~2010) Aortic heart murmur on examination (01/02/16) Chronic renal insufficiency, stage III (moderate) (01/02/16) Depressive disorder (~2010) Essential hypertension (~2010) Metatarsalgia (04/05/15) Mixed hyperlipidemia (~2010) Obstructive sleep apnea treated with continuous positive airway pressure (CPAP) (01/02/16) Postmenopausal estrogen deficiency (08/29/16) Sciatica (01/08/11) Physical Therapy Inpatient Evaluation/Re-Eval M1 PT/OT-IP Prior Functional Status Start: 07/12/22 08:31 Freq: NEEDED Status: Active Protocol: Document 07/12/22 08:45 LRN (Rec: 07/12/22 10:48 LRN [id number]) Medical Review Prior Functional Status Medical History Reviewed Yes Diet/Fluid Consistency Regular Communication Normal Mobility and Gait Mobilized with W/C and use of FWW. Pt lessened use of FWW due to onset of mari shoulder pain with use of walker. Activities of Daily Living and IADL's Pt reports: Independent with assist of spouse for meals. Prior Functional Level (Other details) W/C bound, WBing limited on LLE by pain, but basically NWBing. Social History Household Members spouse Living Arrangements House Number of Floors (Floors) Two Floors Number of Stairs To Enter/Railing? 3 steps into home with mari railing, but only able to use one at a time. 0 steps to get into basement that has a bedroom and bathroom. Home Environment Standard Height Toilet Home Equipment Front Wheel Walker,Manual Wheelchair,Shower Seat with Backrest Employment Status Retired Additional Social History Comment Tub sides and wall next to toilet. 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 M2 PT-IP Current Condition Start: 07/12/22 08:31 Freq: NEEDED Status: Active Protocol: Document 07/12/22 08:45 LRN (Rec: 07/12/22 10:48 LRN [id number]) Physical Therapy Current Condition Current Condition Evaluation Date 07/12/22 Treatment Diagnosis Left tibial tubercle fracture, s/p ORIF 07/11/22. Onset Date 07/11/22 M3 PT-IP Subjective Start: 07/12/22 08:31 Freq: NEEDED Status: Active Protocol: Document 07/12/22 08:45 LRN (Rec: 07/12/22 10:48 LRN [id number]) Subjective Physical Therapy Visit Type Type Initial Evaluation Visit Start Time 09:45 Visit Stop Time 09:30 Total Visit Minutes 45 Physical Therapy Visit Comments Patient Comments Pt reports no L knee pain at rest. States 10 yrs ago had an anterior L TOM resulting in femoral n damage and quadriceps weakness. States she has fallen because of the knee weakness. 10 yrs ago suffered a diatal pole patellar fx 09/09/19 and on fell suffering patella fracture. Patient Goals Pt goal is to go home today. Therapy Pain Assessment Pain When Pain Assessed At Rest Pain Present Pain Present Denied Pain Location left knee Intensity 0 Scale Used Numeric (0 - 10) M4 PT-IP Mobility and Gait Start: 07/12/22 08:31 Freq: NEEDED Status: Active Protocol: Document 07/12/22 08:45 LRN (Rec: 07/12/22 10:48 LRN [id number]) PT-Bed Mobility Assessment Supine to Sit Supine to Sit Independent,Standby Assistance Scooting Scooting to Edge of Bed Independent PT-Transfer Assessment Sit to and From Stand Sit to and from Stand Independent,Standby Assistance ,Use of Upper Extremities Equipment Transfer Assistive Device Bed Rail,Gait Belt,Front Wheeled Walker Transfers Transfer Destination Toilet,Wheelchair Transfer Technique Stand Step Pivot Transfer Ability Level of Assist Independent,Standby Assistance Comments Mobility Comments Pt used FWW to mobilize to w/c and to toilet independently and safely. Gait Assessment Gait Gait Assistance Required: Standby Assistance,Contact Guard Assist Distance (Feet) 5 Able to Maintain Weight Bearing Status Yes During Gait Assistive Devices Assistive Device Gait Belt,Front Wheeled Walker Orthotic/Prosthetic Devices or Brace: Yes Gait Deviations General Gait Pattern Decreased Stride Length Factors Limiting Gait Function Factors Limiting Gait Function Decreased Strength,Pain,Poor Balance Comments Gait Comments Pt limited in walking with FWW due to L LE NWBing status, and bilateral shoulder discomfort. Pt slow to mobilize due to decreased balance due to NWBing status. She has 1/2 grade weakness of her UE's in general due to mari shoulder discomfort. Stair Climbing Assessment Technique/Endurance Stair Climbing Direction Ascend Number of Steps Climbed 1 Query Text: Comments Stair Climbing Comments Pt attempted to ambulate steps , but was not able to hop high enough to ambulate a normal hgt step (that she has at home ) with 1 railing and 1 person max assist. Pt did not have strength in her RLE to hop up and not enough strength in her UE's to lift and support her body to ambulate the step. PT-Balance Assessment Sitting Balance and Reactions Static Sitting Balance Ability Normal Dynamic Sitting Balance Ability Fair Standing Balance and Reactions Static Standing Balance Ability Fair Dynamic Standing Balance Ability Fair Device Used FWW Balance Tests Single Limb Standing R LE <1 sec M5 PT-IP Objective Assessments Start: 07/12/22 08:31 Freq: NEEDED Status: Active Protocol: Document 07/12/22 08:45 LRN (Rec: 07/12/22 10:48 LRN [id number]) Orientation Orientation/Cognition Level of Alertness Alert Orientation Name,Month,Date,Year,Place Language Function Ability No Deficits Noted Safety Awareness Understands Safety Issues Memory Description No Deficits Noted Gross Range of Motion Upper Extremity ROM Assessment Within Functional Limits Lower Extremity ROM Assessment Left Impaired Impairments L LE in knee immobilizer. RLE - WFL Strength Upper Extremity Strength Assessment Within Functional Limits Lower Extremity Strength Assessment Left Impaired Comments Strength Comments R LE: Hips: generally 3/5. Knee: Hamstring 4/5, Quad 5/5. Ankles: 5/5. UE's: Generally 4-/5. Other Assessments Other Other Assessments Pt was left in w/c at end of treatment to get ready for DC; therefore assessment for pt getting back into bed was not performed. Pt was able to transfer to and from w/c to toilet and had reported being NWBing for 2 weeks at home with use of w/c for prior 2 weeks with only assist needed for meal prep. M6 PT-IP Treatment Start: 07/12/22 08:31 Freq: NEEDED Status: Active Protocol: Document 07/12/22 08:45 LRN (Rec: 07/12/22 10:48 LRN [id number]) Physical Therapy Treatment Education Education Provided Precautions,Weight Bearing Status Equipment Issued Equipment Type and Company FWW Other Treatments Other Treatment Performed Recommended safest transfer w/ c to toilet with pt using FWW to walk to walk and turn to sit on toilet. Pt is aware of lack of ability to ambulate stairs at home and will walk into her basement bedroom to reside until she is able to ambulate stairs. M7 PT-IP Assessment and Plan Start: 07/12/22 08:31 Freq: NEEDED Status: Active Protocol: Document 07/12/22 08:45 LRN (Rec: 07/12/22 10:48 LRN [id number]) PT Summary Assessment and Plan Potential Rehabilitation Potential Excellent Status of Condition at Evaluation Evolving Summary Impairments ROM,Strength,Balance,Gait, Activity Tolerance Assessment Summary The pt is safet to go home entering on their basement level to avoid having to use stairs. Pt is independent with mobilizing out of bed and transfers bed<>w/c<>toilet. Pt will be seen 2x/day until discharge. Based on her ability to mobilize and walk with FWW, without signs of instability, as previously stated the pt would be safe to go home if she is able to walk into her home, avoiding stairs. I recommend the pt be seen for home health PT for improving the ability of the pt to ambulate stairs to make it safe to get in/out of her home using more than the one exit/entrance strategy. Goals Bed Mobility Goal Independent Transfer Goal Independent Gait Goal Standby Assistance Gait Distance 10' Days to Meet Goals 1 Frequency of Treatment Frequency Of Treatment Twice a Day Treatment Plan Physical Therapy Treatment Plan Gait Training,Therapeutic Exercise Precautions Brace Per physician orders, L knee immobilizer for 4 weeks minimum. NWBing for 2 weeks. Weight Bearing Status Weight Bearing Status Non-Weight Bearing Recommendations To Nursing Amount of Assist Needed Standby Assistance Discharge Recommendations PT Discharge Recommendations Home with Assistance,Home Health Transportation Needs at Discharge Private Vehicle
--- NOTE | 2022-07-12 10:52 | PC.NURSE ---
Pt is A&Ox4, VSS, afebrile on RA. She had used oxygen at night with her CPAP machine. She denies SOB. She reports pain well controlled this a.m. with prn hydrocodone. She is able to work with PT using w/ch and FWW. She is cleared for discharge by surgical MD for discharge home. She verbalizes understanding of weight bearing restrictions, site care, medications, and follow up appointments. She is escorted by w/ch with [employer] to private vehicle for discharge home [facility] [place] [phone]. She has all of her belongings and prescriptions were picked up prior by .
== END 2022-07-12 10:00 | disposition home health service (06) | DRG 494 ==
PROVIDERS: Admitting Provider Orthopaedic Surgery; Family Provider Family Medicine; PCP Family Medicine; Referring Provider Orthopaedic Surgery; Visit Provider Orthopaedic Surgery
PROC: 0QSH04Z Reposition Left Tibia with Internal Fixation Device, Open Approach (ICD-10-PCS; principal; 2022-07-11 16:45)
DX: S82.152A Displaced fracture of left tibial tuberosity, initial encounter for closed fracture (principal); I10 Essential (primary) hypertension; F32.A Depression, unspecified; W01.0XXA Fall on same level from slipping, tripping and stumbling without subsequent striking against object, initial encounter; Z20.822 Contact with and (suspected) exposure to COVID-19; Z23 Encounter for immunization
CPT/HCPCS: 73560; 73700; 76000; 87635; 90471; 90662; 97162; C9803; A9270; J1170; J1885; J2405; J2704; J3010

== ENCOUNTER → 2023-02-12 11:07 | Outpatient (CLI) | payer MEDICARE, OTHER, SELFPAY ==
[2022-07-11 22:38] VITALS: BMI 29.2
== END ==
PROVIDERS: Family Provider Family Medicine; PCP Family Medicine; Referring Provider Nurse Practitioner Family; Visit Provider Surgery
DX: I89.0 Lymphedema, not elsewhere classified (principal); L97.211 Non-pressure chronic ulcer of right calf limited to breakdown of skin; L97.221 Non-pressure chronic ulcer of left calf limited to breakdown of skin
CPT/HCPCS: 99203; 99214

== ENCOUNTER → 2023-03-08 14:05 | Outpatient (CLI) | payer MEDICARE, OTHER, SELFPAY ==
[2022-07-11 22:38] VITALS: BMI 29.2
== END ==
PROVIDERS: Family Provider Family Medicine; PCP Family Medicine; Referring Provider Family Medicine; Visit Provider Physician Assistant
DX: I89.0 Lymphedema, not elsewhere classified (principal); L97.822 Non-pressure chronic ulcer of other part of left lower leg with fat layer exposed
CPT/HCPCS: 97597; 99213

== ENCOUNTER → 2023-03-25 12:59 | Outpatient (CLI) | payer MEDICARE, OTHER, SELFPAY ==
[2022-07-11 22:38] VITALS: BMI 29.2
--- OUTSIDE RECORDS SUMMARY | 2023-07-19 15:09 | XMS_ITS | Referral Summary ---
Author Name Unknown Organization [facility] Address [address] [place] [address] Care Team Providers Care Hazardous Materials Waste Technician Name Role Phone Yin Camarillo Primary Care Provider [phone] Precious Bucio Unavailable [phone] Alpa Ayers MD Unavailable [phone] Reason for Referral * Specialty Visit (Routine) - In Process Specialty Diagnoses / Procedures Referred By Mary william Referred To Contact Diagnoses Cellulitis of left lower extremity Yin Camarillo ARNP [address] [place] [address] [facility] [address] [place] [id number] Referral ID Status Reason Start Date Expiration Date Visits Requested Visits Authorized [id number] In Process Specialty Services Required 01/15/2023 01/15/2024 99 99 Scheduling Instructions Referral to: [place]: [facility] (POS [id number]) [phone] Please be aware that while I, as your health care provider, have identified this referral as medically indicated, I cannot guarantee your insurance plan will cover it. I recommend you contact your insurance carrier to make sure this is a covered service they will pay for. Reason for Visit * Reason Comments Cellulitis Left lower leg & lym ph in groin swelling; small areas on right leg Encounter Details Date Type Department Care Team Description 01/15/2023 Office Visit Medicine [facility] [place] [address], [place] [id number] Yin Camarillo ARNP [address] [place] [address] Dx: Lymphadenopathy (Primary Dx) Allergies Active Allergy Reactions Severity Noted Date Comments Valentin Inhibitors Resp: Cough High 10/05/2021 Ibuprofen Other Medium 07/17/2019 Contraindicated due to poor kidney function Latex Skin: Rash Medium 06/15/2017 Lidocaine Medium 07/11/2018 Other reaction(s): Allergy Undetermined Lidocaine with IV starts caused atyptical burning (noted in 3 IV starts). Pt also reports a Lidocaine injection in groin in past had caused severe pain-4 days later Morphine GI:Nausea/vomiting High 06/15/2017 Penicillins Other Medium 06/15/2017 As child unsure of reaction Pravastatin Myalgia Medium 06/15/2017 Depression Simvastatin Myalgia Medium 06/15/2017 Myalgias Statins Myalgia Medium 08/14/2016 documented as of this encounter (statuses as of 01/16/2023) Medications Medication Sig Dispensed Refills Start Date End Date Status cholecalciferol 25 mcg (1,000 unit) capsule Take 3 capsules (3,000 units) by mouth. 0 07/03/2018 Active Scarbro-3 Fatty Acids (Fish Oil) 1000 MG capsule Take 1 capsule (1,000 mg) by mouth daily. 0 Active acetaminophen 325 MG tablet Take 2 tablets (650 mg) by mouth 2 times a day as needed. 0 Active famotidine 20 MG tablet TAKE ONE(1) TABLET BY MOUTH TWO(2) TIMES DAILY 0 09/08/2021 Active clindamycin 150 MG capsule TAKE FOUR(4) CAPSULES ONE(1) HOUR PRIOR TO DENTAL APPOINTMENT. 0 11/07/2021 Active cyclobenzaprine 10 MG tabletIndications:Bu ttock pain,Groin pain, left,Tendonitis in region of greater trochanter of femur, left TAKE ONE(1) TABLET BY MOUTH ONCE DAILY NEEDED FOR MUSCLE SPASMS 90 tablet 3 09/07/2022 Active gabapentin 600 MG tabletIndications:Bu ttock pain,Groin pain, left,Tendonitis in region of greater trochanter of femur, left TAKE ONE(1) TABLET BY MOUTH ONCE DAILY AT BEDTIME 90 tablet 0 10/17/2022 Active Additional Information Patient taking differently: 300 mg Oral Nightly, Reason: Other, Informant: Patient Reported, Reported on 11/26/2022 citalopram 10 MG tabletIndications:De pressive disorder TAKE ONE(1) TABLET BY MOUTH ONCE DAILY 90 tablet 1 10/20/2022 Active NIFEdipine ER 30 MG 24 hr tabletIndications:Es sential hypertension TAKE TWO(2) TABLETS BY MOUTH ONCE DAILY NOTE: THESE ARE 30MG TABLETS 180 tablet 0 11/11/2022 Active fenofibrate 54 MG tabletIndications:Mi xed hyperlipidemia Take 1 tablet (54 mg) by mouth daily. 90 tablet 3 11/16/2022 Active propranolol 10 MG tabletIndications:Es sential hypertension TAKE ONE(1) TABLET BY MOUTH TWO(2) TIMES DAILY 180 tablet 0 12/09/2022 Active irbesartan-hydroCHLO ROthiazide 150-12.5 MG tabletIndications:Es sential hypertension TAKE ONE(1) TABLET BY MOUTH ONCE DAILY 90 tablet 0 12/09/2022 Active tocopherol (Vitamin E) 450 mg (1,000 unit) capsule Take 1 capsule (450 mg) by mouth daily. 0 Active pyridoxine 100 MG tablet Take 1 tablet (100 mg) by mouth daily. 0 Active hydrOXYzine pamoate 25 MG capsuleIndications:P rurigo Take 1 capsule (25 mg) by mouth 3 times a day as needed for itching. 90 capsule 3 12/14/2022 Active Garlic 100 MG tablet Take by mouth daily. 0 Active Coenzyme Q10 (COQ10 OR) Take by mouth daily. 0 Active Red Yeast Rice Extract (RED YEAST RICE OR) Take by mouth daily. 0 Active nystatin 799769 UNIT/GM powderIndications:Fu ngal infection Apply topically 3 times a day. Apply to right groin area. 60 g 2 01/04/2023 Active sulfamethoxazole-tri methoprim 800-160 MG tabletIndications:Ce llulitis of left lower extremity Take 1 tablet by mouth 2 times a day for 10 days. 20 tablet 0 01/15/2023 Active Silver Hydrogel gelIndications:Cellu litis of left lower extremity Apply 1 application topically daily. 45 mL 3 01/15/2023 Active Bismuth Tribromoph-Petrolatu m (xeroform petrolatum)Indicatio ns:Cellulitis of left lower extremity Apply 1 each topically one time for 1 dose. 1 each 0 01/15/2023 3 Hospital, Clinic, or Other Facility Administered Medication Ordered Dose Route Frequency Start Date End Date Status cyanocobalamin (Vitamin B-12) injection 1,000 mcgIndications:B12 deficiency 1000 mcg SC Monthly 01/15/2023 Active documented as of this encounter (statuses as of 01/16/2023) Active Problems Problem Noted Date PVD (peripheral vascular disease) 2022 Venous stasis ulcer of left calf limited to breakdown of skin without varicose veins 09/11/2022 Femoral neuropathy, left 10/05/2021 Hiatal hernia with GERD 05/09/2021 Overview: Added automatically from request for surgery [id number] Pharyngoesophageal dysphagia 05/09/2021 Overview: Added automatically from request for surgery [id number] Vaccine counseling 07/08/2019 Unilateral primary osteoarthritis, left hip 07/08/2019 Allergic rhinitis 07/08/2019 JOAN on CPAP 07/08/2019 Primary insomnia 07/08/2019 Diverticulitis 07/08/2019 Murmur 05/29/2018 Chronic groin pain, left 03/18/2018 Depressive disorder 01/16/2018 Primary osteoarthritis of right hip 03/2017 Essential hypertension 06/17/2017 Mixed hyperlipidemia 06/17/2017 Chronic renal impairment, stage 3 (moder ate) 06/17/2017 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 06/17/2017 Aortic heart murmur on examination 01/01 documented as of this encounter (statuses as of 01/16/2023) Immunizations Name Administration Dates Next Due Hepatitis A adult 05/13/2007,11/12/2006,11/12/18 47 Influenza quadrivalent 07/09/2022 Influenza quadrivalent PF 08/16/2017,06/29/2016, 10/12/2015 Influenza quadrivalent high-dose 09/14/2020 Influenza trivalent 06/17/2013,06/13/2009,2008 Influenza trivalent PF 08/06/2014,07/22/2012 Influenza trivalent high-dose 07/14/2019, 018,06/27/2018 Influenza, unspecified 08/16/2017 Pneumococcal conjugate PCV13 (Prevnar 13) 2017 Pneumococcal polysaccharide PPSV23 (Pneumovax 23) 09/14/2020 Poliovirus inactivated IPV (IPOL) 05/13/2007 Td 2 Lf tetanus toxoid 03/20/2005 Td 5 Lf tetanus toxoid 03/20/2005 Tdap 09/10/2014 Typhoid live (Vivotif) 11/12/2006,11/12/1946 Zoster recombinant (Shingrix) 05/13/2019, 019,11/10/2018 documented as of this encounter Social History Tobacco Use Types Packs/Day Years Used Date Smoking Tobacco: Never Smokeless Tobacco: Never Alcohol Use Standard Drinks/Week Comments Yes 1 (1 standard drink = 0.6 oz pur e alcohol) Education Answer Date Recorded What is the highest level of school you have completed or the highest degree you have received? High school graduate 01/04/2023 Sex Assigned at Date Recorded Not on file documented as of this encounter Last Filed Vital Signs Vital Sign Reading Time Taken Comments Blood Pressure 132/88 01/15/2023 2:37 PM PDT Pulse 90 01/15/2023 2:37 PM PDT Temperature 36.8 ??C (98.3 ??F) 01/15/2023 2:37 PM PD T Respiratory Rate 18 01/15/2023 2:37 PM PDT Oxygen Saturation 98% 01/15/2023 2:37 PM PDT Inhaled Oxygen Concentration - - Weight 85.7 kg (189 lb) 01/15/2023 2:37 PM PDT Height 162.6 cm (5' 4) 01/15/2023 2:37 PM PDT Body Mass Index 32.44 01/15/2023 2:37 PM PDT documented in this encounter Progress Notes * Yin Camarillo, SASHA - 01/15/2023 2:40 PM PDT Images from the original note were not included. [facility] Note DATE 01/15/2023 An aircraft captain was not needed for the visit. Alix Pulliam is a 77 year old female established patient who is here today for Cellulitis (Left lower leg & lymph in groin swelling; small areas on right leg ) INTERVAL HISTORY/HPI: Alix is here for left lower leg cellulitis. She recently had vascular work up for concern for peripheral or arterial insufficiency. The tests were reassuring for no vascular compromise. She has open sores and wounds on the left lower extremity which is red, swollen and weeping. She also notes herhiatal hernia was acting up last night and she was awake and throwing up until 2 am. She denies fever, chills, body aches. Her left lower leg is painful and warm to touch. Additional History Details: I reviewed the patient's recorded medical history, and confirmed the following: medications, problem list, and allergies Review of Systems Constitutional: Negative. HENT: Negative. Eyes: Negative. Respiratory: Negative. Negative for cough, shortness of breath and wheezing. Cardiovascular: Negative. Negative for chest pain, palpitations and leg swelling. Musculoskeletal: Negative. Skin: Positive for wound (left lower extremity with open weeping sores). Neurological: Negative. Psychiatric/Behavioral: Negative for behavioral problems, dysphoric mood and self-injury. BP 132/88 Pulse 90 Temp 36.8 ??C (Temporal) Resp 18 Ht 5' 4 (1.626 m) Wt 85.7 kg (189 lb) SpO2 98% BMI 32.44 kg/m?? Physical Exam Vitals reviewed. Constitutional: Appearance: She is well-developed. HENT: Head: Normocephalic and atraumatic. Eyes: General: Gaze aligned appropriately. Extraocular Movements: Extraocular movements intact. Conjunctiva/sclera: Conjunctivae normal. Pupils: Pupils are equal, round, and reactive to light. Pulmonary: Effort: Pulmonary effort is normal. Musculoskeletal: Legs: Comments: Left lower extremity with erythema, edema and open weeping areas with light eschar. Open areas treated with silvasorb gel, covered with xeroform and secured with rolled gauze. Areas marked with dotted sharpie with 1 inch border. Neurological: Mental Status: She is alert and oriented to person, place, and time. Psychiatric: Behavior: Behavior normal. Thought Content: Thought content normal. Judgment: Judgment normal. Advised Alix that if redness extended beyond black dotted line she is to present to ED for IV antibiotics. We will start Bactrim for concern for MRSA. Culture obtained; CBC drawn, blood smear ordered. Discussed that with lymphadenopathy there is concern for possible blood disorder. Referral to wound care placed. ASSESSMENT/PLAN ICD-10-CM 1. Lymphadenopathy R59.1 CBC with Diff CBC with Diff Blood Smear Prep and Hold Pathologist Review Pathologist Review Blood Smear Prep and Hold 2. Cellulitis of left lower extremity L03.116 WOUND CULTURE W/GRAM sulfamethoxazole-trimethoprim 800-160 MG tablet WOUND CULTURE W/GRAM Silver Hydrogel gel Bismuth Tribromoph-Petrolatum (xeroform petrolatum) Referral to Wound Care Yin Camarillo ARNP, 01/15/2023 2:42 PM documented in this encounter Plan of Treatment Upcoming Encounters Date Type Specialty Care Team Description 02/13/2023 Office Visit Urogynecology Precious Bucio ARNP [address] , [facility] [address] [place] [address] Pending Results Name Type Priority Associated Diagnoses Date /Time WOUND CULTURE W/GRAM Microbiology Routine Cellulitis of left lower extremity 01/15/2023 2:50 PM PDT Pathologist Review Lab Routine Lymphadenopathy 01/15/2023 2:52 PM PDT Wound C/S w/Gram Microbiology Routine 2022 2:50 PM PDT Scheduled Orders Name Type Priority Associated Diagnoses Orde r Schedule WOUND CULTURE W/GRAM Microbiology Routine Cellulitis of left lower extremity Expected: 01/15/2023 (Approximate), Expires: 02/14/2024 Blood Smear Prep??and Hold Lab Routine Lymphadenopathy Expected: 01/15/2023 (Approximate), Expires: 02/14/2024 Pathologist Review Lab Routine Lymphadenopathy Expected: 01/15/2023 (Approximate), Expires: 02/14/2024 Scheduled Referrals Name Type Priority Associated Diagnoses Orde r Schedule Referral to Wound Care Referral Routine Cellulitis of left lower extremity Expected: 01/15/2023, Expires: 01/16/2024 documented as of this encounter Procedures Procedure Name Priority Date/Time Associated Diagnosis Comments WOUND C/S W/GRAM Routine 01/15/2023 2:50 PM PDT CBC, DIFF Remote Lab 01/15/2023 2:43 PM PDT Lymphadenopathy documented in this encounter Results * (ABNORMAL) CBC with Diff (01/15/2023 2:43 PM PDT) WBC 7.50 4.3 - 10.0 10*3/uL 01/15/2023 11:21 PM PDT [facility] RBC 4.46 3.80 - 5.00 10*6/uL 01/15/2023 11:21 PM PDT [facility] Hemoglobin 12.9 11.5 - 15.5 g/dL 01/15/2023 11:21 PM PDT [facility] Hematocrit 41 36.0 - 45.0 % 01/15/2023 11:21 PM PDT [facility] MCV 92 81 - 98 fL 01/15/2023 11:21 PM PDT [facility] MCH 28.9 27.3 - 33.6 pg 01/15/2023 11:21 PM PDT [facility] MCHC 31.6(L) 32.2 - 36.5 g/dL 01/15/2023 11:21 PM PDT [facility] Platelet Count 454(H) 150 - 400 10*3/uL 01/15/2023 11:21 PM PDT [facility] RDW-CV 13.1 11.0 - 14.5 % 01/15/2023 11:21 PM PDT [facility] % Neutrophils 67 % 01/15/2023 11:21 PM PDT [facility] % Lymphocytes 18 % 01/15/2023 11:21 PM PDT [facility] % Monocytes 10 % 01/15/2023 11:21 PM PDT [facility] % Eosinophils 3 % 01/15/2023 11:21 PM PDT [facility] % Basophils 2 % 01/15/2023 11:21 PM PDT [facility] % Immature Granulocytes 0 % 01/15/2023 11:21 PM PDT [facility] Neutrophils 5.07 1.80 - 7.00 10*3/uL 01/15/2023 11:21 PM PDT [facility] Absolute Lymphocyte Count 1.33 1.00 - 4.80 10*3/uL 01/15/2023 11:21 PM PDT [facility] Monocytes 0.73 0.00 - 0.80 10*3/uL 01/15/2023 11:21 PM PDT [facility] Absolute Eosinophil Count 0.23 0.00 - 0.50 10*3/uL 01/15/2023 11:21 PM PDT [facility] Basophils 0.11 0.00 - 0.20 10*3/uL 01/15/2023 11:21 PM PDT [facility] Immature Granulocytes 0.03 0.00 - 0.05 10*3/uL 01/15/2023 11:21 PM PDT [facility] Nucleated RBC 0.00 0.00 10*3/uL 01/15/2023 11:21 PM PDT [facility] % Nucleated RBC 0 % 11:21 PM PDT [facility] Blood 01/15/2023 2:43 PM PDT Yin BAEZ LAB BLOOD ORDERABLES [facility] DEPT OF LAB MED [address] [facility] [place] [id number] [place] [address] [facility] Dept of Lab Med [address] [facility] [place] [address] [place] [address] documented in this encounter Visit Diagnoses Diagnosis Lymphadenopathy- Primary Enlargement of lymph nodes Cellulitis of left lower extremity Cellulitis and abscess of leg, except foot B12 deficiency Other B-complex deficiencies documented in this encounter Administered Medications Active Administered Medications - up to 3 most recent administrations Medication Order MAR Action Action Date Dose Rate Site cyanocobalamin (Vitamin B-12) injection 1,000 mcg 1,000 mcg, Subcutaneous, Monthly, First dose on Sat01/15/23 at 1540 Given 01/15/2023 3:14 PM PDT 1,000 mcg Le ft Arm documented in this encounter Additional Health Concerns Assessment Noted Time PHQ-9 Depression Total Score: 0 10/05/19 22 1:02 PM PST documented as of this encounter Advance Directives For more information, please contact: [phone] Documents on File Type Date Recorded 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
== END ==
PROVIDERS: Family Provider Family Medicine; PCP Family Medicine; Referring Provider Nurse Practitioner Family; Visit Provider Surgery
DX: I89.0 Lymphedema, not elsewhere classified (principal); L97.821 Non-pressure chronic ulcer of other part of left lower leg limited to breakdown of skin
CPT/HCPCS: 99213; 99214

== ENCOUNTER → 2023-05-17 12:06 | Outpatient (CLI) | payer MEDICARE, OTHER, SELFPAY ==
[2022-07-11 22:38] VITALS: BMI 29.2
--- NOTE | 2023-05-17 | DI.CT.S_ITS ---
PROCEDURE: CT KIDNEY URETER BLADDER (KUB) INDICATIONS: Gross hematuria TECHNIQUE: Axial sections were acquired from the lung bases to the pubic symphysis. Coronal and sagittal reformats were performed. For radiation dose reduction, the following was used: automated exposure control, adjustment of mA and/or kV according to patient size. COMPARISON: None. FINDINGS: Image quality: Reduced by absence of intravenous contrast portion of the study which was canceled due to history of relatively low GFR. Lung bases: Unremarkable. Relatively large hiatal hernia behind the heart Heart: No significant findings. URINARY: Right Kidney: No stones or hydronephrosis. Right Ureter: No hydroureter. Left Kidney: There is a 4 x 6 mm 430 Hounsfield unit calculus that is nonobstructive at the middle 3rd posterior collecting system of the left kidney Left Ureter: No hydroureter. Bladder: Normal wall thickness. No stones. ABDOMEN: Liver: Unremarkable. Gallbladder: The gallbladder is seen to contain multiple faintly calcified gallstones including a possible large gallstone measuring up to 4 cm in dimension, faintly peripherally calcified. Biliary ducts: Unremarkable. Pancreas: Unremarkable. Spleen: Unremarkable. Adrenal Glands: Unremarkable. Stomach and Bowel: Stomach, small bowel loops, and colon are unremarkable. Peritoneum: No abnormal intraperitoneal fluid. No free air. Ventral Wall: No hernia. Abdominal Nodes: No enlarged retroperitoneal or mesenteric lymph nodes. Vessels: Aorta and inferior vena cava are normal in size. PELVIS: Pelvic Organs: Unremarkable. Pelvic Nodes: Unremarkable. Miscellaneous: No inguinal hernias are seen. Bones: Prior bilateral total hip arthroplasty procedures which produces extensive metal artifact crossing the bladder area of the lower pelvis IMPRESSION: 1. 4 x 6 mm 430 Hounsfield unit nonobstructive left mid kidney collecting system calculus. 2. The study was performed without intravenous contrast due to history of elevated GFR. Therefore accurate assessment for renal cortical neoplasm is quite limited. 3. Bilateral total hip arthroplasty procedures results in extensive metal artifact crossing the bladder area of the lower pelvis. A mass within the bladder therefore would not be accurately detected by this study. Given the reported history of gross hematuria follow-up by bladder ultrasound may be warranted. Dictated by: Dre Wilcox M.D. on 05/17/2023 at 15:24 Approved by: Dre Wilcox M.D. on 05/17/2023 at 15:30
[2023-05-17 12:37] LABS: Estimated Glomerular Filt Rate 29 mL/min (>60)
== END ==
PROVIDERS: Radiology Diagnostic Radiology; Family Provider Family Medicine; PCP Family Medicine; Referring Provider Naturopath; Visit Provider Naturopath
DX: R31.0 Gross hematuria (principal); N20.0 Calculus of kidney; Z96.643 Presence of artificial hip joint, bilateral
CPT/HCPCS: 36415; 74176; 82565

== ENCOUNTER → 2024-10-22 11:27 | Outpatient (CLI) | payer MEDICARE, OTHER, SELFPAY ==
[2022-07-11 22:38] VITALS: BMI 29.2
--- NOTE | 2024-10-22 11:29 | DI.US.S_ITS ---
PROCEDURE: US RENAL COMPLETE INDICATIONS: CHRONIC KIDNEY DISEASE STAGE 4 TECHNIQUE: Real-time scanning was performed of the kidneys and bladder, with image documentation. COMPARISON: , CT, CT KIDNEY URETER BLADDER (KUB), 05/17/2023, 14:19. FINDINGS: Kidneys: Kidneys are small in size. Right kidney measures 8.8 cm long; left kidney measures 8.3 cm long. Right renal cortical thickness is 1.0 cm; left renal cortical thickness is 1.7 cm. Renal cortical echotexture is increased. Mild left hydronephrosis. No right hydronephrosis. Left renal stones measuring up to 3 mm. No suspicious solid mass lesions. Bilateral simple cysts measuring up to 1.4 cm on the right and 1.3 cm on the left. Bladder: Pre-void bladder volume is 124 mL. Post-void residual is 14 mL. Pre-void images demonstrate no intraluminal masses or stones. On pre-void images, neither ureteral jets are noted with color Doppler interrogation. (Of note, ureteral jets may not be detectable in up to 25% of cases due to insufficient differences in specific gravity between ureteral and bladder urine). Miscellaneous: No free pelvic fluid. Midline structure projecting into the urinary bladder wall posteriorly. IMPRESSION: 1. Kidneys are small and increased in echogenicity, most consistent with medical renal disease. 2. Mild left hydronephrosis. No right hydronephrosis. Left renal stones measuring up to 3 mm. 3. Midline structure indenting the posterior aspect of the urinary bladder of uncertain etiology. This may be normal structures such as the uterus or bowel, however neoplastic process is not entirely excluded. This is not seen on postvoid imaging. Dictated by: Jonatan Hernández M.D. on 10/22/2024 at 16:32 Approved by: Jonatan Hernández M.D. on 10/22/2024 at 16:36
== END ==
LOC: US 11:28
PROVIDERS: Family Provider Family Medicine; PCP Family Medicine; Referring Provider Student in an Organized Health Care Education/Training Program; Visit Provider Student in an Organized Health Care Education/Training Program
DX: N18.4 Chronic kidney disease, stage 4 (severe) (principal); N13.30 Unspecified hydronephrosis; N13.2 Hydronephrosis with renal and ureteral calculous obstruction; N28.1 Cyst of kidney, acquired
CPT/HCPCS: 76770

== ENCOUNTER 2025-05-28 13:41 | Emergency (ER) | payer MEDICARE, OTHER, SELFPAY ==
[2022-07-11 22:38] VITALS: BMI 29.2
[2025-05-28 13:51] VITALS: BP 165/76; PULSE 80; RESP 16; TEMP 36.4; O2SAT 97; BMI 30.1
--- NOTE | 2025-05-28 16:42 | DI.CT.S_ITS ---
PROCEDURE: CT PELVIS W CON INDICATIONS: left hip swelling TECHNIQUE: After the administration of intravenous contrast, 5 mm thick sections acquired from the iliac crests to the symphysis. 5 mm coronal and sagittal reformats were acquired. For radiation dose reduction, the following was used: automated exposure control, adjustment of mA and/or kV according to patient size. COMPARISON: [facility], CT, CT KIDNEY URETER BLADDER (KUB), 05/17/2023, 14:19. [facility], CR, XR PELVIS WITH LATERAL HIP LEFT, 03/16/2024, 14:57. FINDINGS: Image quality: Diagnostic. PELVIS: Peritoneum and Bowel: Bowel loops demonstrate normal wall thickness and caliber. No free fluid or air. Pelvic Organs: No pelvic mass. Bladder: Normal wall thickness, accounting for underdistension. No perivesicular fat stranding. Pelvic Nodes: No enlarged lymph nodes. Miscellaneous: There is a lobulated focus of low attenuation along the left pelvic sidewall measuring approximately 6.2 x 4.4 by 8.0 cm there is minimal appearance of adjacent stranding. Hounsfield units measure 20. In addition, there is soft tissue density and stranding measuring approximately 6.5 x 4.2 cm in the subcutaneous fat lateral to the left hip. Bones: No aggressive osseous abnormality. Bilateral hip arthroplasties. Hardware is intact without hardware fracture. Questionable periprosthetic lucency on the left slightly more prominent.. Alignment is stable. IMPRESSION: Low-attenuation collection along the right pelvic sidewall extending to the level of the psoas muscle. Minimal surrounding inflammatory change. Hounsfield units are suggestive of fluid attenuation and much lower than expected for hematoma. Soft tissue density is present along the lateral aspect of the left hip in the subcutaneous fat also with fluid attenuation. This could represent developing abscess/phlegmon. Bilateral hip arthroplasties. Hardware appears intact. There is questionable appearance of slight increased periprosthetic lucency which can be indicative of loosening on the left compared to 2022. Dictated by: Laurel Bond M.D. on 05/28/2025 at 18:15 Approved by: Laurel Bond M.D. on 05/28/2025 at 18:22
[2025-05-28 17:11] VITALS: BP 166/78; PULSE 84; RESP 16; O2SAT 97
[2025-05-28 17:18] LABS: Add Manual Diff / Slide Review NO; Hematocrit 22.2 % (36-46); Hemoglobin 7.2 g/dL (12.0-16.0); Lymphocytes Absolute Auto 800 /uL (1100-4500); Mean Corpuscular HGB Conc 32.2 % (30-36); Mean Corpuscular Hemoglobin 24.2 PG (26-34); Mean Corpuscular Volume 75.3 fL (80-100); Platelet Count 584 X10^3/uL (150-400)
[2025-05-28 17:32] LABS: Alanine Aminotransferase 18 IU/L (<35); Albumin 3.5 g/dL (3.5-5.0); Albumin Globulin Ratio 1.0 (1.0-2.8); Alkaline Phosphatase 95 U/L (38-126); Blood Urea Nitrogen 32 mg/dL (7-17); Calcium 9.3 mg/dL (8.4-10.2); Carbon Dioxide 25 mmol/L (22-32); Chloride 101 mmol/L (98-107); Estimated Glomerular Filt Rate 32 mL/min (>60); Globulin 3.4 g/dL (1.7-4.1); Glucose 98 mg/dL (70-99); HEMOLYSIS < 15 (0-50); Potassium 3.6 mmol/L (3.4-5.1); Sodium 135 mmol/L (137-145); Total Protein 6.9 g/dL (6.3-8.2)
--- NOTE | 2025-05-28 19:03 | ED.SKABFB ---
HPI - Skin/Abscess/Foreign Bdy General Chief complaint: Skin/Abscess/Foreign Body Stated complaint: Growth on left thigh. x 7 days Time Seen by Provider: 05/28/25 16:42 History of Present Illness HPI narrative: Patient is an 80-year-old female history of remote left total hip replacement done at [facility] a number of years ago presenting today with increasing swelling and pain in her left hip. No fever no chills. She is able to weightbear but it is tender in hurts. She has no numbness or tingling denies any fall or injury. She does report that she has a history of anemia. She started taking iron recently Related Data Home Medications ?Medication ?Instructions ?Recorded ?Confirmed citalopram 10 mg tablet 10 mg PO DAILY 01/07/18 07/11/22 cyclobenzaprine 10 mg tablet 10 mg PO DAILY PRN Muscle Spasm 07/11/22 07/11/22 famotidine 20 mg tablet 20 mg PO BID 07/11/22 07/11/22 gabapentin 600 mg tablet 300 mg PO DAILY 07/11/22 07/11/22 irbesartan 150 1 tab PO DAILY 07/11/22 07/11/22 mg-hydrochlorothiazide 12.5 mg tablet nifedipine 30 mg tablet,extended 60 mg PO DAILY 07/11/22 07/11/22 release 24 hr propranolol 10 mg tablet 10 mg PO BID 07/11/22 07/11/22 Previous Rx's ?Medication ?Instructions ?Recorded hydrocodone 5 mg-acetaminophen 325 1 tab PO Q6H PRN pain #20 tabs 07/11/22 mg tablet ibuprofen 600 mg tablet 600 mg PO Q6H PRN pain #60 tabs 07/11/22 Allergies Allergy/AdvReac Type Severity Reaction Status Date / Time latex Allergy Mild RASH Verified 07/11/22 16:08 Penicillins Allergy Unknown CHILDHOOD Verified 07/11/22 16:08 morphine AdvReac Intermediate SEVERE Verified 07/11/22 16:08 VOMITING pravastatin AdvReac Intermediate DEPRESSION Verified 07/11/22 16:08 simvastatin AdvReac Intermediate MYALGIAS Verified 07/11/22 16:08 Patient History Medical History Allergic rhinitis (~2010) Aortic heart murmur on examination (01/02/16) Chronic renal insufficiency, stage III (moderate) (01/02/16) Depressive disorder (~2010) Essential hypertension (~2010) Metatarsalgia (04/05/15) Mixed hyperlipidemia (~2010) Obstructive sleep apnea treated with continuous positive airway pressure (CPAP) (01/02/16) Postmenopausal estrogen deficiency (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/16) Sciatica (01/08/11) Surgical History History of hip replacement, total Social History household members: spouse alcohol intake: current alcohol intake frequency: a few times a month Exam Initial Vital Signs Initial Vital Signs: Vital Signs Temperature 97.6 F 05/28/25 13:51 Pulse Rate 80 05/28/25 13:51 Respiratory Rate 16 05/28/25 13:51 Blood Pressure 165/76 H 05/28/25 13:51 Pulse Oximetry 97 05/28/25 13:51 Oxygen Delivery Method Room Air 05/28/25 13:51 GENERAL: Alert well-appearing 80-year-old female CARDIOVASCULAR: peripheral pulses in tact, cap refill <2 sec RESPIRATORY: No respiratory distress, speaks in full sentences without difficulty ABDOMEN: Soft, nontender, no guarding or rebound EXTREMITIES: Normal range of motion, no clubbing or edema. Neurovascularly intact Left hip she does have some swelling it is tender to touch there is no erythema NEUROLOGICAL: Cranial nerves II through XII grossly intact. Normal gait and speech. SKIN: Warm, dry, no petechiae, no rashes or lesions. Course Orders Ordered: ED Orders 05/28/25 16:42 CT pelvis w con Stat 05/28/25 17:07 CBC Auto Diff [Complete Blood Count AUTO DIFF] Stat CMP [Comprehensive Metabolic Panel] Stat Vital Signs Vital signs: Vital Signs - 8 hr 05/28/25 17:11 Pulse Rate 84 Respiratory Rate 16 Blood Pressure 166/78 H Pulse Oximetry 97 MDM - Skin/Abscess/Foreign Bdy Lab Data 05/28/25 17:07 05/28/25 17:07 Labs: Lab Results 05/28/25 Range/Units 17:07 WBC 7.7 (4.5-11.0) X10^3/uL RBC 2.95 L (4.0-5.2) X10^6/uL Hgb 7.2 L (12.0-16.0) g/dL Hct 22.2 L (36-46) % MCV 75.3 L (80-100) fL MCH 24.2 L (26-34) PG MCHC 32.2 (30-36) % RDW 16.5 H (11.6-14.8) % Plt Count 584 H (150-400) X10^3/uL Neut % (Auto) 77.7 H (50-75) % Lymph % (Auto) 10.9 L (25-40) % [place] % (Auto) 9.7 (3-14) % Eos % (Auto) 0.9 L (2-4) % Baso % (Auto) 0.8 (0-2) % Neut # (Auto) 5900 (2737-8511) /uL Lymph # (Auto) 800 L (2480-8563) /uL [place] # (Auto) 700 (0-900) /uL Eos # (Auto) 100 (0-450) /uL Baso # (Auto) 100 (0-100) /uL Sodium 135 L (137-145) mmol/L Potassium 3.6 (3.4-5.1) mmol/L Chloride 101 (98-107) mmol/L Carbon Dioxide 25 (22-32) mmol/L BUN 32 H (7-17) mg/dL Creatinine 1.62 H (0.52-1.04) mg/dL Estimated GFR 32 L (>60) mL/min BUN/Creatinine Ratio 19.8 (6-22) Glucose 98 (70-99) mg/dL Calcium 9.3 (8.4-10.2) mg/dL Total Bilirubin 0.3 (0.2-1.3) mg/dL AST 46 H (14-36) IU/L ALT 18 (<35) IU/L Alkaline Phosphatase 95 (38-126) U/L Total Protein 6.9 (6.3-8.2) g/dL Albumin 3.5 (3.5-5.0) g/dL Globulin 3.4 (1.7-4.1) g/dL Albumin/Globulin Ratio 1.0 (1.0-2.8) Imaging Data CT scan - abdomen/pelvis: Radiologist's Impression: PROCEDURE: CT PELVIS W CON INDICATIONS: left hip swelling TECHNIQUE: After the administration of intravenous contrast, 5 mm thick sections acquired from the iliac crests to the symphysis. 5 mm coronal and sagittal reformats were acquired. For radiation dose reduction, the following was used: automated exposure control, adjustment of mA and/or kV according to patient size. COMPARISON: [facility], CT, CT KIDNEY URETER BLADDER (KUB), 05/17/2023, 14:19. [facility], CR, XR PELVIS WITH LATERAL HIP LEFT, 03/16/2024, 14:57. FINDINGS: Image quality: Diagnostic. PELVIS: Peritoneum and Bowel: Bowel loops demonstrate normal wall thickness and caliber. No free fluid or air. Pelvic Organs: No pelvic mass. Bladder: Normal wall thickness, accounting for underdistension. No perivesicular fat stranding. Pelvic Nodes: No enlarged lymph nodes. Miscellaneous: There is a lobulated focus of low attenuation along the left pelvic sidewall measuring approximately 6.2 x 4.4 by 8.0 cm there is minimal appearance of adjacent stranding. Hounsfield units measure 20. In addition, there is soft tissue density and stranding measuring approximately 6.5 x 4.2 cm in the subcutaneous fat lateral to the left hip. Bones: No aggressive osseous abnormality. Bilateral hip arthroplasties. Hardware is intact without hardware fracture. Questionable periprosthetic lucency on the left slightly more prominent.. Alignment is stable. IMPRESSION: Low-attenuation collection along the right pelvic sidewall extending to the level of the psoas muscle. Minimal surrounding inflammatory change. Hounsfield units are suggestive of fluid attenuation and much lower than expected for hematoma. Soft tissue density is present along the lateral aspect of the left hip in the subcutaneous fat also with fluid attenuation. This could represent developing abscess/phlegmon. Bilateral hip arthroplasties. Hardware appears intact. There is questionable appearance of slight increased periprosthetic lucency which can be indicative of loosening on the left compared to 2022. Dictated by: Laurel Bond M.D. on 05/28/2025 at 18:15 MDM Narrative Medical decision making narrative: Patient 80-year-old female presenting today with left hip swelling and pain. CT does show fluid collection along the psoas muscle. Could be abscess or phlegmon. There is also maybe some loosening of hardware in the hip. Patient is afebrile she has no leukocytosis she does have anemia which he is aware of. Electrolytes are within normal limits. I do not think she has a septic joint. She is able to stand and weightbear on it it does hurt. Patient becoming quite anxious in the emergency department wanting to leave so that she can catch the [place]. I explained to her her CT findings which included possible fluid collection in the I would need to talk with Orthopedics to see if this is related. She was unwilling to wait for the phone call periods saying that there is a very that she needed to catch. She said that there are no hotels in the area and they needed to get back home. Instructed her to follow up and call Orthopedics here locally. Also gave her strict return precautions. The patient is clinically sober, free from distracting injury, appears to have intact insight, judgment and reason. Does not meet criteria for involuntary hospitalization. Patient has the capacity to make decisions. The patient is also not under any duress to leave the hospital. In this scenario, it would be battery to subject the patient to treatment against his/her will. I have voiced my concerns for the patient's health given that a full evaluation and treatment had not occurred. I have discussed the need for continued evaluation to determine if there symptoms are caused by a condition that present risk of or morbidity. Risk including but not limited to , permanent disability, prolonged hospitalization, prolonged illness, were discussed. I tried offering alternative options in hopes that the patient might be amenable to partial evaluation and treatment which would be medically beneficial to the patient, though the patient declined my options and insisted on leaving. Because I have been unable to convince the patient to stay I answered all of their questions about the condition and ask them to return to the ED as soon as possible to complete their evaluation, especially if their symptoms worsen or do not improve. I emphasized that leaving against medical advice did not preclude returning here for further evaluation. I asked the patient to return if they change their mind about the further evaluation and treatment. I strongly encouraged the patient to return to this emergency department or any emergency department at any time, particularly with worsening symptoms. Discharge Plan Departure Patient Disposition: Left Against Medical Advice Clinical Impression: Seroma, Anemia Instructions: DI for Wound Infection Activity Restrictions/Additional Instructions: You are leaving against medical advice Your CTs today shows fluid in that hip area as psoas muscle. It also is suggestive of some loosening the of the hardware. It is strongly recommended that you follow-up with orthopedic. At this time there does not appear to be infection You did not want to wait for me to contact Orthopedic surgery Prescriptions: No Action irbesartan-hydrochlorothiazide 150-12.5 mg Tablet 1 tab PO DAILY nifedipine 30 mg tablet extended release 24hr 60 mg PO DAILY Patient Comments: TAKE TWO(2) TABLETS BY MOUTH ONCE DAILY NOTE THESE ARE 30MG TABLETS cyclobenzaprine 10 mg tablet 10 mg PO DAILY PRN (Reason: Muscle Spasm) Patient Comments: TAKE ONE(1) TABLET BY MOUTH ONCE DAILY NEEDED FOR MUSCLE SPASMS gabapentin 600 mg tablet 300 mg PO DAILY Patient Comments: TAKE ONE(1) TABLET BY MOUTH ONCE DAILY AT BEDTIME propranolol 10 mg Tablet 10 mg PO BID famotidine 20 mg Tablet 20 mg PO BID hydrocodone-acetaminophen 5-325 mg tablet 1 tab PO Q6H PRN (Reason: pain) Qty: 20 0RF ibuprofen 600 mg tablet 600 mg PO Q6H PRN (Reason: pain) Qty: 60 0RF citalopram 10 MG tablet 10 mg PO DAILY Referrals: Hu Juan MD [Physician, Orthopedic Surgery] Stand Alone Forms: Patient Portal/API, Against Med. Advice (Azeri)
--- NOTE | 2025-05-28 19:20 | PC.NURSE ---
Pt reports she lives on [address]. [place]. need to [place] ferry. asking to leave. dr torres made aware. leaving AMA. paperwork signed. IV removed. pt given copy of CT results.
== END 2025-05-28 19:23 | disposition left against medical advice (07) ==
PROVIDERS: Emergency Provider Emergency Medicine; Family Provider Family Medicine
DX: S70.02XA Contusion of left hip, initial encounter (principal); D64.9 Anemia, unspecified; Z96.642 Presence of left artificial hip joint
CPT/HCPCS: 36415; 72193; 80053; 85025; 99283; 99284; Q9967